=== PATIENT | female | born 1970 | race Caucasian/White ===

== ENCOUNTER 2018-09-05 08:29 | Day surgery (SDC) | payer BC ==
[~2018-09-05 08:29] MED LIST: Sodium Chloride 0.9% 10 ML Syringe FLUSH PRN
[2018-09-05] MEDS: Lactated Ringers 1,000 ML IV SCH (09:25)
[2018-09-05] MEDS ORDERED: Propofol 200 MG/20 ML SDV ONE ×2 (10:19→11:16)
[2018-09-05] MEDS ORDERED: fentaNYL 100 MCG/2 ML SDV ONE (10:20)
--- NOTE | 2018-09-05 13:48 | OR ---
PREOPERATIVE DIAGNOSES: 1. Screening colonoscopy. 2. Two positive family history of colon cancer in mother who was diagnosed in her late 60s. This is the patient's first colonoscopy. POSTOPERATIVE DIAGNOSIS: Two polyps, both removed with the snare and then base cauterized. 1. A 5 mm polyp at 80 cm. 2. A 10 mm polyp at 30 cm. PROCEDURE: Colonoscopy with polypectomy x2 using hot snare. SURGEON: Umberto Crespo M.D. ANESTHESIA: Monitored anesthesia care. BOWEL PREP: Good. Floridalma is a 48-year-old female who was brought to the endoscopy suite after discussing risks and benefits of the procedure. Informed consent was obtained for conscious sedation and colonoscopy with or without biopsy and/or polypectomy. We also discussed possibility of missed lesions. Pre-procedure exam was unremarkable. IV, oxygen, and monitors were placed. The patient was placed in the left lateral decubitus position. Sedation was administered and a digital rectal exam was performed and unremarkable. Colonoscope was passed into the rectum and slowly advanced all the way to the cecum. Cecum was viewed and photographed. The colonoscope was slowly withdrawn and the mucosa was closed observed in a direct circumferential manner. The ascending colon was unremarkable. The transverse colon was revealed a 5 mm polyp at 80 cm, removed with snare. Initially this was clipped off and then the base was cauterized. Descending colon was unremarkable. The sigmoid colon was revealed 10 mm polyp at 30 cm. The base of this one was initially clipped off as well and then base was cauterized. There was some mild bleeding from the polyp site which resolved with time and cautery. Retroflexion was performed and rectal mucosa was unremarkable. Scope was removed. The patient tolerated the procedure well. The patient was monitored until that baseline status. Discharge instructions were reviewed and the patient was discharged in good condition. COMPLICATIONS: None. TOTAL TIME: 30 minutes. ESTIMATED BLOOD LOSS: 2 to 3 mL. RECOMMENDATIONS/FOLLOW-UP: We will await results of path report to determine ideal followup interval. I would like to kindly thank Amy Zepeda for this referral. DMB: 09/05/2018 11:56:38 MODL: 09/05/2018 13:35:56 /[id number]
== END 2018-09-05 12:35 | disposition home or self-care (01) ==
LOC: VM.SDS 08:29
PROVIDERS: ATTEND Family Medicine
DX: Z12.11 Encounter for screening for malignant neoplasm of colon (principal); D12.4 Benign neoplasm of descending colon; D12.5 Benign neoplasm of sigmoid colon; I10 Essential (primary) hypertension; E66.01 Morbid (severe) obesity due to excess calories; Z68.44 Body mass index [BMI] 60.0-69.9, adult; Z80.0 Family history of malignant neoplasm of digestive organs
CPT/HCPCS: 45385; J2704; J3010; J7120

== ENCOUNTER 2020-12-15 20:08 | Emergency (ER) | payer BC ==
[2020-12-15] MEDS ORDERED: Sodium Chloride 0.9% 10 ML Syringe FLUSH PRN (20:23)
[2020-12-15] MEDS ORDERED: Albuterol/Ipratropium 3.0-0.5 MG/3 ML Neb Soln NEB ONE (20:24)
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
[2020-12-15 21:45] LABS: PTT,PARTIAL THROMBOPLSTIN TIME 27.1 SEC (25.6-32.8)
--- NOTE | 2020-12-15 21:59 | CR ---
[id number] RAD/RAD Chest PA or AP 1V EXAM: FRONTAL CHEST INDICATION: SOB, HYPOXEMIA COMPARISON: None. DISCUSSION: The left hemidiaphragm is obscured and there is blunting of the left costophrenic angle. Differential considerations include pleural fluid, infiltrates, and/or atelectasis. Low lung volumes with mild central vascular crowding and right base atelectasis. Borderline heart size without evidence of edema. IMPRESSION: 1. Left base opacity with obscured left hemidiaphragm. Differential considerations include infiltrates, pleural fluid, and/or volume loss. Scott August MD 12/15/20 [id number] Thank you for allowing us to participate in the care of your patient.
[2020-12-15 22:08] LABS: ANION GAP 17.6 mmol/L (5-15)
[2020-12-15] MEDS ORDERED: cefTRIAXone 1 GM Vial IVPUSH ONE (22:48)
[2020-12-15] MEDS ORDERED: Heparin Sodium 5,000 Units/ML Vial IVPUSH ONE (23:19)
[2020-12-15] MEDS ORDERED: Heparin Sodium/0.45% NaCl 25,000 UNITS/500 ML BAG IV SCH (23:30)
[2020-12-16 00:04] VITALS: PULSE 105
[2020-12-16 00:39] VITALS: BP 125/71
== END 2020-12-16 00:27 | disposition short-term general hospital (02) ==
LOC: VM.ED 20:08
DX: R06.02 Shortness of breath (principal); M79.662 Pain in left lower leg; I10 Essential (primary) hypertension; R79.89 Other specified abnormal findings of blood chemistry; M79.89 Other specified soft tissue disorders; R74.02 Elevation of levels of lactic acid dehydrogenase [LDH]; E66.01 Morbid (severe) obesity due to excess calories; Z68.44 Body mass index [BMI] 60.0-69.9, adult
CPT/HCPCS: 36415; 71045; 80053; 83605; 83880; 84484; 85025; 85379; 85610; 85730; 86140; 87040; 87077; 87186; 93005; 93010; 94640; 94760; 96365; 96375; 99284; 99285-25; J0696; J1644; J7620-GY; U0002